=== PATIENT | male | born 1975 | race Caucasian/White ===

== ENCOUNTER 2017-07-08 13:33 | Emergency (ER) | payer OTHER ==
[~2017-07-08] VITALS: Ht 182.9 cm; Wt 107.6 kg
[~2017-07-08 13:33] MED LIST: ENDOCET 5-3251 EACH PO; FENTANYL1 EAC4 TD; FLEXERIL5 MG PO; LISINOPRIL20 MG PO; MELATONIN2.5 MG PO; MEN'S MULTI-VI1 EACH PO; MOTRIN800 MG PO; NEXIUM40 MG PO; PROZAC20 MG PO; XANAX0.5 MG PO
[2017-07-08] MEDS ORDERED: NAPROSYN500 MG PO (13:52)
[2017-07-08] MEDS ORDERED: FLEXERIL10 MG PO (13:52)
[2017-07-08] MEDS ORDERED: TRAMADOL HCL50 MG PO (13:52)
[2017-07-08 14:55] VITALS: BP 149/100
== END 2017-07-08 14:57 | disposition home or self-care (01) ==
LOC: EME 13:33
DX: S29.012A Strain of muscle and tendon of back wall of thorax, initial encounter (principal); X50.0XXA Overexertion from strenuous movement or load, initial encounter; Z98.890 Other specified postprocedural states; Z88.5 Allergy status to narcotic agent; Z88.6 Allergy status to analgesic agent